=== PATIENT | female | born 1980 | race Caucasian/White ===

== ENCOUNTER 2018-09-16 09:16 | Outpatient (CLI) | payer BC ==
[2018-09-16 11:00] LABS: BHCG - Serum Negative (NEGATIVE); Pregs Control Background? CLEAR/WHITE (CLR/WHITE); Pregs Control Bar Appear? YES (CONTROL BAR)
[2018-09-16 11:09] LABS: Anion Gap 10 mmol/L (10-20); BUN (Urea Nitrogen) 14 mg/dL (7.0-18.7); Calc. Creatinine Clearance 0 mL/min (70-130); Calcium 9.2 mg/dL (7.8-10.44); Carbon Dioxide 26 mmol/L (22-29); Chloride 108 mmol/L (98-107); Estimated GFR-MDRD 71; Glucose 82 mg/dL (70-105); Potassium 4.2 mmol/L (3.5-5.1); Sodium 140 mmol/L (136-145)
== END 2018-09-16 09:17 | disposition home or self-care (01) ==
LOC: LABBT 09:16
PROVIDERS: ATTEND Surgery
DX: Z01.812 Encounter for preprocedural laboratory examination (principal); C43.9 Malignant melanoma of skin, unspecified
CPT/HCPCS: 80048; 84703

== ENCOUNTER 2018-09-17 07:24 | Day surgery (SDC) | payer BC ==
[2018-09-16 09:57] VITALS: BMI 29.0
[2018-09-17] MEDS ORDERED: CEFAZOLIN 2 GM/50 ML BAG ONE (09:09)
[2018-09-17] MEDS ORDERED: Lidocaine 2% PF 5 ML VIAL ONE (10:22)
[2018-09-17] MEDS ORDERED: Bupivacaine/Epinephrine 0.25% 30 ML VIAL ONE (10:22)
[2018-09-17] MEDS ORDERED: Fentanyl 100 MCG/2 ML VIAL ONE ×3 (10:28→13:19)
[2018-09-17] MEDS ORDERED: Midazolam HCl 2 mg/2 ml Vial ONE (10:31)
[2018-09-17] MEDS ORDERED: Famotidine/PF 20 mg/2ml Vial ONE (10:38)
[2018-09-17] MEDS ORDERED: Scopolamine 1.5 mg/72 hour Patch ONE (10:42)
--- NOTE | 2018-09-17 10:47 | NM ---
LYMPHOSCINTIGRAPHY OF THE LEFT UPPER ARM: HISTORY: Malignant melanoma of the skin, unspecified. 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 TECHNIQUE: Planar imaging of the head, neck, chest, and axillae was performed, following the perilesional inject ion of 418 microcuries of technetium 99m filtered sulfur colloid, in divided doses, in the left upper arm. There is visualization of lymph nodes in the axilla. No other regional lymph nodes are seen. FINDINGS: [place] lymph node (s) in the left axilla. POS: PABLO
[2018-09-17] MEDS ORDERED: HYDROcodone/Acetaminophen 5/325 mg Tablet ONE (14:32)
[2018-09-17] MEDS ORDERED: Glycopyrrolate 0.2 MG/ML 5 ML SYRINGE ONE (14:51)
[2018-09-17] MEDS ORDERED: Ondansetron PF 4 MG/2 ML Vial ONE (14:51)
[2018-09-17] MEDS ORDERED: PROPOFOL 200 MG/20 ML VIAL ONE (14:51)
[2018-09-17] MEDS ORDERED: Dexamethasone 20 MG/5 ML VIAL ONE (14:51)
[2018-09-17] MEDS ORDERED: Ketorolac Tromethamine 30 MG/ML VIAL ONE (14:51)
[2018-09-17] MEDS ORDERED: Lidocaine 1% PF 5 ML VIAL ONE (14:51)
--- NOTE | 2018-09-18 13:02 | OP ---
DATE OF PROCEDURE: 09/17/2018 PREOPERATIVE DIAGNOSIS: Malignant melanoma, 1.6 mm in depth, left arm. POSTOPERATIVE DIAGNOSIS: Malignant melanoma, 1.6 mm in depth, left arm. PROCEDURES PERFORMED: 1. Wide local excision of malignant melanoma, left arm, 3 cm in greatest diameter, complex layered closure with extensive undermining, 9 cm in length, left arm. 2. Deep axillary node biopsy (sentinel node protocol). ANESTHESIA: General. ESTIMATED BLOOD LOSS: Minimal. COMPLICATION: None. SPECIMEN: Left arm skin marked with two short superior, one long lateral; sent to Path for final diagnosis. [place] node, multiple, sent to Path for final diagnosis. TECHNIQUE: The patient had undergone preop lymphoscintigraphy revealing uptake in the left axilla, taken to the operating room and laid supine on the operating room table. Left arm, shoulder, axilla were all prepped and draped in a sterile fashion. A 5 mL of methylene blue dye had been infiltrated subdermal in the left arm and massaged for 5 minutes prior to the procedure. Incision was made on the inferior hairline of the left axilla. The Neoprobe was used to find an area of increased uptake. There was an area of increased uptake with blue lymph node. This was removed and background counts dropped too significantly. There were two other areas of slight increased uptake that were removed as well, dropping the background count to 0. The wound was irrigated. Local anesthetic was applied. The left axillary wound was closed using 3-0 Vicryl, 4-0 Monocryl and Dermabond. Elliptical incision was used to remove the previous scar to the left arm, 3 cm in greatest diameter, 9 cm in length. Sharply, the wound was dissected all the way down to the fascia. The specimen was marked with two short superior, one long lateral and sent to Path for final diagnosis. Meticulous hemostasis was obtained. Extensive undermining was performed circumferentially in order to close without tension. The deep tissues and subcutaneous tissues were closed using 3-0 Vicryl. The skin was closed using running 4-0 Monocryl and Dermabond. The patient was sent over to Recovery in stable condition. All instrument counts, needle counts, and lap counts were correct. Job ID: [id number]
--- NOTE | 2018-10-09 05:23 | PQF ---
[facility] POST DISCHARGE CLINICAL DOCUMENTATION IMPROVEMENT CLARIFICATION FORM l Todays Date: 10/08/18 l Patients Name MEENA LEPE l l Admit Date 09/17/18 l Disch Date 09/17/18 Well Flow Operator Name Harpal Lau Email: [email or web address]: [phone] To be completed by Well Flow Operator: Present Clinical Indicators - Signs / Symptoms Results and Location in Medical Record [ ] Documentation of: [ ] [ ] Documentation of: [ ] [ ] Documentation of: [ ] [ ] Documentation of: [ ] [ ] Risks [ ] [ ] [ ] Treatment [ ] MALIGNANT MELANOMA L ARM QUERY FOR MARGINS OF EXCISED LESION [ ] [ ] To be completed by Physician: GLENN CONRAD The documentation in this patients record requires clarification to ensure coding compliance and accuracy. Check the appropriate box and include in your discharge summary. [ ] [ ] [ ] [ ] Please check this box if this does not apply to this patient [ ] Unable to determine [ ] Other diagnosis: Review the following information and exercise your independent professional judgment in responding to the clarification. Based upon the clinical findings, risk factors, and treatment, please clarify if you are treating one of the above probable or suspected diagnoses. Physician Signature: Date Time MTDD
== END 2018-09-17 14:45 | disposition home or self-care (01) ==
LOC: SDC 07:24
PROVIDERS: ATTEND Surgery
PROC: 07B60ZX Excision of Left Axillary Lymphatic, Open Approach, Diagnostic (ICD-10-PCS; principal; 2018-09-17)
PROC: 0HBCXZZ Excision of Left Upper Arm Skin, External Approach (ICD-10-PCS; principal; 2018-09-17)
DX: C43.62 Malignant melanoma of left upper limb, including shoulder (principal); G43.909 Migraine, unspecified, not intractable, without status migrainosus; Z79.899 Other long term (current) drug therapy; Z88.8 Allergy status to other drugs, medicaments and biological substances
CPT/HCPCS: 78195; 88305; 88307; 88342; 96374; A9541; J0131; J1100; J1885; J2001; J2250; J2405; J2704; J3010; Q9968; S0028

== ENCOUNTER 2024-05-26 09:14 | Outpatient (CLI) | payer BC | END 2024-05-26 09:15 | disposition home or self-care (01) | LOC: BICMAMMO 09:14 | PROVIDERS: ATTEND Nurse Practitioner Family | DX: N63.22 Unspecified lump in the left breast, upper inner quadrant (principal); R92.1 Mammographic calcification found on diagnostic imaging of breast; N60.02 Solitary cyst of left breast | CPT/HCPCS: 77066; G0279 ==